=== PATIENT | female | born 1980 | race Caucasian/White ===

== ENCOUNTER 2021-06-13 04:34 | Emergency (ER) | payer OTHER ==
[2021-06-13 05:14] LABS: BASOPHIL 0.8 % (0-2); EOSINOPHIL 3.5 % (0-5); HCT 39.5 % (37.0-47.0); HGB 12.8 g/dl (12.5-16.0); LYMPHOCYTE 20.1 % (15-48); MCHC 32.4 g/dL (32.0-36.0); MCV 92.7 fL (78.0-100.0); MONOCYTE 7.4 % (0-12); MPV 10.4 fL (6.0-9.5); NEUTROPHIL 66.6 % (41-80); NRBC 0; PLT 235 K/uL (150-400); RBC 4.26 M/uL (4.20-5.40); RDW 13.6 % (11.5-14.0); WBC 9.7 K/uL (4.0-10.5)
[2021-06-13 05:39] LABS: ALBUMIN 3.4 g/dL (3.4-5.0); BILIRUBIN - TOTAL 0.5 mg/dL (0.2-1.0); BUN/CREAT RATIO (CALC) 10.1 RATIO; CREATININE 1.38 mg/dL (0.51-0.95); GLOBULIN (CALCULATION) 3.7 g/dL; POTASSIUM 3.2 mmol/L (3.5-5.1); TOTAL PROTEIN 7.1 g/dL (6.4-8.2)
[2021-06-13 06:23] LABS: BILIRUBIN NEGATIVE (NEGATIVE); BLOOD NEGATIVE Ery/uL (NEGATIVE); CLARITY CLEAR (CLEAR); COLOR YELLOW (YELLOW); GLUCOSE (U) NORMAL (NORMAL); LEUKOCYTES NEGATIVE Leu/uL (NEGATIVE); NITRITE NEGATIVE (NEGATIVE); PROTEIN NEGATIVE (NEGATIVE); UROBILINOGEN 0.2 mg/dL (0.2-1.0)
[2021-06-13 06:26] LABS: ECSTASY (MDMA) NEGATIVE (NEGATIVE); MARIJUANA (THC) NEGATIVE (NEGATIVE)
[2021-06-13 06:27] LABS: AMPHETAMINES NEGATIVE (NEGATIVE); BARBITURATES NEGATIVE (NEGATIVE); METHADONE POSITIVE (NEGATIVE); OPIATES NEGATIVE (NEGATIVE); OXYCODONE NEGATIVE (NEGATIVE)
[2021-06-13] MEDS ORDERED: BACTRIM DS TAB1 EACH PO (06:44)
[2021-06-13] MEDS ORDERED: PHENERGAN25 M1 PO (06:44)
[2021-06-13] MEDS ORDERED: ONDANSETRON ODT4 MG PO (06:44)
== END 2021-06-13 07:13 | disposition home or self-care (01) ==
LOC: FER 04:34
PROVIDERS: Internal Medicine
DX: N30.90 Cystitis, unspecified without hematuria (principal); N17.9 Acute kidney failure, unspecified; E87.6 Hypokalemia; F17.210 Nicotine dependence, cigarettes, uncomplicated; Z88.6 Allergy status to analgesic agent
CPT/HCPCS: 36415; 80053; 80305; 81003; 83690; 85025